=== PATIENT | male | born 1975 | race Caucasian/White ===

== ENCOUNTER 2024-11-01 18:17 | Emergency (ER) | payer OTHER, SELFPAY ==
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
[2024-11-01 18:33] VITALS: BP 106/63; PULSE 63; RESP 18; TEMP 36.4; O2SAT 99
== END 2024-11-01 19:15 | disposition short-term general hospital (02) ==
LOC: EXPCOLL 18:26
PROVIDERS: Emergency Provider Nurse Practitioner Family; PCP Emergency Medicine
DX: R20.0 Anesthesia of skin (principal); M54.2 Cervicalgia; M54.9 Dorsalgia, unspecified; V53.5XXA Driver of pick-up truck or van injured in collision with car, pick-up truck or van in traffic accident, initial encounter
CPT/HCPCS: 99212; G0463